=== PATIENT | female | born 1995 | race Two or more races ===

== ENCOUNTER 2024-09-18 08:45 | Inpatient (IN) | payer BC ==
[2024-09-18] MEDS ORDERED: LABETALOL HCL 200 MG TABLET (FP) ONE (09:43)
[2024-09-18] MEDS: LABETALOL HCL 200 MG TABLET (FP) PO ONE (10:00)
[2024-09-18 10:20] LABS: ABSOLUTE IMMATURE GRANULOCYTES 0.08 x10^3/uL (0.0-0.031); BASOPHILS # 0.04 x10^3/uL (0.01-0.08); EOSINOPHIL % 0.1 % (0.7-5.8); EOSINOPHILS # 0.01 x10^3/uL (0.04-0.36); HEMATOCRIT 41.4 % (34.1-44.9); HEMOGLOBIN 14.3 g/dL (11.2-15.7); MCHC 34.5 g/dl (32.2-35.5); MEAN CELL VOLUME 92.6 fl (79.4-94.8); MEAN PLT VOLUME 8.9 fl (9.4-12.3); MONOCYTE # 0.53 x10^3/uL (0.24-0.86); MONOCYTE % 3.2 % (4.7-12.5); PLATELET COUNT # 236 x10^3/uL (182-369)
[2024-09-18 10:26] LABS: INR 1.02 (0.83-1.09); PROTHROMBIN TIME (PATIENT) 11.1 SEC (9.7-13.0)
[2024-09-18 10:29] LABS: ACTIVATED PTT 25.2 SECONDS (25.2-36.5)
[2024-09-18 10:40] LABS: BLOOD UREA NITROGEN 11.2 mg/dL (7-18); CALCIUM 9.1 mg/dL (8.5-10.1)
[2024-09-18 10:43] LABS: URIC ACID 5.6 mg/dL (2.6-7.2)
[2024-09-18 10:44] LABS: CREATININE 0.6 mg/dL (0.55-1.3)
[2024-09-18 10:45] LABS: BILIRUBIN,TOTAL 0.4 mg/dL (0.2-1); TOT PROT 6.9 g/dl (6.4-8.2)
[2024-09-18] MEDS: ELECTROLYTE-148 SOLN 1,000 ML IV SCH (11:02)
[2024-09-18 12:24] LABS: EPI CELLS >36 /uL (0-25.1); HYALINE CASTS 8 /uL (0-3.1); PH,URINE 6.5 (5.0-8.0); URINE APPEARANCE CLOUDY; URINE BACTERIA 2866 /uL (0-1359); URINE BILIRUBIN NEGATIVE (NEGATIVE); URINE COLOR DK YELLOW; URINE GLUCOSE (UA) NEGATIVE (NEGATIVE); URINE KETONE 2+ (NEGATIVE); URINE LEUK ESTERASE NEGATIVE (NEGATIVE); URINE NITRITE NEGATIVE (NEGATIVE); URINE PROTEIN 2+ (NEGATIVE); URINE UROBILINOGEN 0.2 mg/dL (0.2-1.0); URINE WBC 42 /uL (0-25.8)
[2024-09-18] MEDS ORDERED: MAGNESIUM SULFATE 20GM/500ML - 20 GM/500 ML INFUS.BAG ONE ×2 (12:36→22:42)
[2024-09-18 12:39] LABS: URINE RBC 20.2 /uL (0-23.9)
[2024-09-18 13:42] VITALS: BMI 33.5
[2024-09-18] MEDS: VANCOMYCIN 1,000 MG in DEXTROSE 5%-WATER - 250 ML IVPB SCH (13:43)
[2024-09-18] MEDS ORDERED: OXYTOCIN 30 UNITS in 0.9% NS 30 UNIT/500 ML INFUS.BAG IVPB ONE (14:42)
[2024-09-18] MEDS: OXYTOCIN 30 UNITS in 0.9% NS 30 UNIT/500 ML INFUS.BAG IVPB SCH (14:55)
[2024-09-18] MEDS: MAGNESIUM SULFATE 20GM/500ML - 20 GM/500 ML INFUS.BAG IVPB SCH ×2 (15:11→22:26)
[2024-09-18] MEDS: ACETAMINOPHEN 1000 MG/100 ML BAG IVPB ONE (17:00)
[2024-09-18] MEDS ORDERED: ACETAMINOPHEN INJECTION 100 ML ONE (17:09)
[2024-09-18] MEDS ORDERED: FENTANYL/BUPIVACAINE/NS/PF - PCEA - 50 ML DISP.SYRIN EP ONE (17:31)
[2024-09-18 18:40] VITALS: RESP 18
[2024-09-18] MEDS ORDERED: OXYTOCIN 20 UNITS in 0.9% NS 20 UNIT/1,000 ML INFUS.BAG IV ONE (21:35)
[2024-09-18] MEDS: OXYTOCIN 20 UNITS in 0.9% NS 20 UNIT/1,000 ML INFUS.BAG IV SCH (22:20)
[2024-09-18] MEDS ORDERED: LIDOCAINE HCL 1% PRESERVATIVE FREE - 30ML VIAL ONE (22:21)
[2024-09-18 22:49] LABS: CORD HCO3 26.2 mmHg (20-29); CORD PCO2 74.4 mmHg (30-78); CORD pH 7.164 (7.14-7.44)
[2024-09-18] MEDS ORDERED: NALOXONE HCL 0.4 MG/ML VIAL IVPUSH PRN (22:58)
[2024-09-18] MEDS ORDERED: WITCH HAZEL 50% (TUCKS) 40 PAD/JAR PAD TP PRN (23:05)
[2024-09-18] MEDS ORDERED: BENZOCAINE 28 GM HEMORRHOIDAL OINTMENT TP PRN (23:05)
[2024-09-18] MEDS ORDERED: BISACODYL 10 MG SUPP.RECT RC PRN (23:05)
[2024-09-18] MEDS ORDERED: oxyCODONE HCL 5 MG TABLET PO PRN (23:05)
[2024-09-18] MEDS ORDERED: IBUPROFEN 600 MG TABLET (FP) PO ONE (23:20)
[2024-09-18] MEDS: IBUPROFEN 600 MG TABLET (FP) PO PRN (23:22)
[2024-09-19] MEDS: FENTANYL/BUPIVACAINE/NS/PF - PCEA - 50 ML DISP.SYRIN EP SCH (04:01)
[2024-09-19 07:35] LABS: BASOPHILS # 0.03 x10^3/uL (0.01-0.08); EOSINOPHIL % 0.1 % (0.7-5.8); EOSINOPHILS # 0.01 x10^3/uL (0.04-0.36); HEMATOCRIT 36.1 % (34.1-44.9); HEMOGLOBIN 11.9 g/dL (11.2-15.7); MEAN CELL VOLUME 94.8 fl (79.4-94.8); MEAN PLT VOLUME 8.8 fl (9.4-12.3); MONOCYTE # 1.31 x10^3/uL (0.24-0.86); MONOCYTE % 7.1 % (4.7-12.5); PLATELET COUNT # 216 x10^3/uL (182-369); RDW 13.1 % (12.1-16.5)
[2024-09-19] MEDS: PRENATAL VITAMINS W/ FOLIC ACID TABLET (FP) PO SCH (09:02)
[2024-09-19] MEDS: ACETAMINOPHEN 325 MG TABLET (FP) PO PRN (15:26)
[2024-09-19] MEDS: LABETALOL HCL 100 MG TABLET (FP) PO SCH (15:27)
[2024-09-19] MEDS: LABETALOL HCL 200 MG TABLET (FP) PO SCH (21:16)
[2024-09-19] MEDS: SENNOSIDES/DOCUSATE COMBO (SENNA PLUS) TABLET (UD) PO PRN (21:16)
[2024-09-19] MEDS: BENZOCAINE 20% 57 GM BOTTLE TP PRN (21:22)
[2024-09-21 09:30] VITALS: TEMP 98.7
[2024-09-21] MEDS: LABETALOL HCL 200 MG TABLET (FP) PO ONE (10:29)
[2024-09-21 12:47] VITALS: PULSE 98
[2024-09-21 13:36] LABS: ABSOLUTE IMMATURE GRANULOCYTES 0.07 x10^3/uL (0.0-0.031); BASOPHILS # 0.03 x10^3/uL (0.01-0.08); EOSINOPHIL % 1.2 % (0.7-5.8); EOSINOPHILS # 0.14 x10^3/uL (0.04-0.36); HEMATOCRIT 33.9 % (34.1-44.9); HEMOGLOBIN 11.3 g/dL (11.2-15.7); MCHC 33.3 g/dl (32.2-35.5); MEAN CELL VOLUME 95.5 fl (79.4-94.8); MEAN PLT VOLUME 8.8 fl (9.4-12.3); MONOCYTE # 0.58 x10^3/uL (0.24-0.86); MONOCYTE % 5.2 % (4.7-12.5); PLATELET COUNT # 231 x10^3/uL (182-369); RDW 13.2 % (12.1-16.5)
[2024-09-21 13:57] LABS: POTASSIUM 3.9 mmol/L (3.5-5.1)
[2024-09-21 14:04] LABS: ALBUMIN 2.7 g/dl (3.4-5.0); BLOOD UREA NITROGEN 8.9 mg/dL (7-18)
[2024-09-21 14:07] LABS: CREATININE 0.6 mg/dL (0.55-1.3)
[2024-09-21 14:08] LABS: BILIRUBIN,TOTAL 0.3 mg/dL (0.2-1)
[2024-09-21 14:09] LABS: CALCIUM 9.5 mg/dL (8.5-10.1); TOT PROT 6.1 g/dl (6.4-8.2)
[2024-09-21 15:59] VITALS: BP 134/86
[2024-09-21] MEDS ORDERED: LABETALOL HCL 200 MG TABLET (FP) PO SCH (22:00)
== END 2024-09-21 17:45 | disposition home or self-care (01) | DRG 807 ==
LOC: JDEL 08:45 → JLDR 09:20 → J3W 09-19 03:30
PROVIDERS: ADMIT Obstetrics & Gynecology; ATTEND Obstetrics & Gynecology
PROC: 10E0XZZ Delivery of Products of Conception, External Approach (ICD-10-PCS; principal; 2024-09-18)
PROC: 0KQM0ZZ Repair Perineum Muscle, Open Approach (ICD-10-PCS; 2024-09-18)
DX: O99.824 Streptococcus B carrier state complicating childbirth (principal); Z37.0 Single live birth; O70.1 Second degree perineal laceration during delivery; O14.14 Severe pre-eclampsia complicating childbirth; O24.429 Gestational diabetes mellitus in childbirth, unspecified control; Z3A.39 39 weeks gestation of pregnancy
CPT/HCPCS: 36415; 36600; 59409; 80048; 80053; 81003; 82803; 82962; 84550; 85025; 85610; 85730; 86780; 86850; 86900; 86901; J0131